=== PATIENT | male | born 1985 | race African-American/Black ===

== ENCOUNTER 2016-02-11 19:43 | Emergency (ER) | payer SELFPAY ==
[2016-02-11] MEDS ORDERED: OXYCODONE-ACETAMINOPHEN 5-325 MG TABLET PO ONE (19:50)
[2016-02-11] MEDS ORDERED: IBUPROFEN 800 MG TABLET PO ONE (19:50)
--- NOTE | 2016-02-11 19:50 | ER Document Report ---
ED Medical Screen (RME) - General Chief Complaint: Flank Pain Stated Complaint: FLANK PAIN Time seen by provider: 19:48 Mode of Arrival: Ambulatory Information source: Patient Notes: 30 yo male presents to ed for left flank pain since yesterday am when woke up. denies hx of kidney stone or [place]. TRAVEL OUTSIDE OF THE [place] IN LAST 30 DAYS: No - HPI Onset: Yesterday Onset/Duration: Gradual, Worse Quality of pain: Achy, Cramping, Sharp Severity: Severe Pain Level: 5 Associated Symptoms: Other - left flank pain Exacerbated by: Denies Relieved by: Denies Similar symptoms previously: No Recently seen / treated by doctor: No - Related Data Smoking: Non-smoker Frequency of alcohol use: Occasional Drug Abuse: None Allergies/Adverse Reactions: No Known Allergies Allergy (Verified 02/11/16 19:46) Past Medical History Past Surgical History: Reports: Hx Oral Surgery, Hx Orthopedic Surgery - R hip repair, L femur - Immunizations Immunizations up to date: Yes Hx Diphtheria, Pertussis, Tetanus Vaccination: No
[2016-02-11 20:32] LABS: ABSOLUTE BASOPHILS # (AUTO) 0.1 10^3/uL (0.0-0.2); ABSOLUTE EOSINOPHILS # (AUTO) 0.1 10^3/uL (0.0-0.6); ABSOLUTE LYMPHOCYTES (AUTO) 1.9 10^3/uL (0.5-4.7); ABSOLUTE MONOCYTES (AUTO) 0.6 10^3/uL (0.1-1.4); ABSOLUTE NEUT (AUTO) 4.1 10^3/uL (1.7-8.2); BASOPHILS % (AUTO) 0.9 % (0-2); EOSINOPHILS % (AUTO) 1.6 % (0-6); HEMATOCRIT 48.4 % (37.9-51.0); HGB HCT DIFFERENCE -0.4; LYMPHOCYTES % (AUTO) 28.3 % (13-45); MEAN CORPUSCULAR HEMOGLOBIN 28.2 pg (27.0-33.4); MEAN CORPUSCULAR VOLUME 86 fl (80-97); MONOCYTES % (AUTO) 8.5 % (3-13); RED BLOOD COUNT 5.66 10^6/uL (4.35-5.55); SEGMENTED NEUTROPHILS % (AUTO) 60.7 % (42-78); WHITE BLOOD COUNT 6.8 10^3/uL (4.0-10.5)
[2016-02-11 20:41] LABS: APPEARANCE,URINE SLIGHTLY-CLOUDY; BILIRUBIN,URINE NEGATIVE (NEGATIVE); GLUCOSE, URINE NEGATIVE (NEGATIVE); KETONES,URINE NEGATIVE (NEGATIVE); LEUKOCYTE ESTERASE,URINE TRACE (NEGATIVE); NITRITE,URINE NEGATIVE (NEGATIVE); PROTEIN,URINE NEGATIVE (NEGATIVE); URINE SPECIFIC GRAVITY 1.025
[2016-02-11 20:48] LABS: ALANINE AMINOTRANSFERASE 44 U/L (21-72); ALBUMIN 4.1 g/dL (3.5-5.0); ALKALINE PHOSPHATASE 61 U/L (38-126); ANION GAP 11 (5-19); ASPARTATE AMINO TRANSFERASE 36 U/L (17-59); BILIRUBIN,TOTAL 1.1 mg/dL (0.2-1.3); BLOOD UREA NITROGEN 11 mg/dL (7-20); CALCIUM 9.6 mg/dL (8.4-10.2); CARBON DIOXIDE 31 mmol/L (22-30); CHLORIDE 104 mmol/L (98-107); CREATININE RESULT 1.12 mg/dL (0.52-1.25); GLUCOSE 86 mg/dL (75-110); POTASSIUM 4.3 mmol/L (3.6-5.0); SODIUM 145.7 mmol/L (137-145); TOTAL PROTEIN 7.2 g/dL (6.3-8.2)
[2016-02-11] MEDS ORDERED: MORPHINE SULFATE 10 MG/ML INJ IM ONE (20:54)
[2016-02-11] MEDS ORDERED: DEXAMETHASONE SOD PHOS INJ 10 MG/1 ML VIAL IM ONE (20:54)
--- NOTE | 2016-02-11 21:23 | ER Document Report ---
ED General - General Chief Complaint: Flank Pain Stated Complaint: FLANK PAIN Mode of Arrival: Ambulatory Information source: Patient Notes: 30-year-old male presents with complaints of low back pain that started earlier this morning. Patient notes it hurts when he moves, denies any urinary complaints. Denies any fevers or chills nausea vomiting or diarrhea TRAVEL OUTSIDE OF THE [place] IN LAST 30 DAYS: No - HPI Onset: This morning Onset/Duration: Sudden Quality of pain: No pain Severity: Mild Pain Level: 3 Associated symptoms: Body/muscle aches Exacerbated by: Movement Relieved by: Denies Similar symptoms previously: Yes Recently seen / treated by doctor: No - Related Data Allergies/Adverse Reactions: No Known Allergies Allergy (Verified 02/11/16 19:46) Past Medical History - General Information source: Patient - Social History Smoking Status: Never Smoker Cigarette use (# per day): No Chew tobacco use (# tins/day): No Smoking Education Provided: No Frequency of alcohol use: Occasional Drug Abuse: None Family History: Reviewed & Not Pertinent Patient has suicidal ideation: No Patient has homicidal ideation: No Past Surgical History: Reports: Hx Oral Surgery, Hx Orthopedic Surgery - R hip repair, L femur - Immunizations Immunizations up to date: Yes Hx Diphtheria, Pertussis, Tetanus Vaccination: No Review of Systems - Review of Systems Notes: REVIEW OF SYSTEMS: CONSTITUTIONAL : Denies fever, chills, or sweats. Denies recent illness. EENT: Denies eye, ear, throat, or mouth pain or symptoms. Denies nasal or sinus congestion or discharge. Denies throat, tongue, or mouth swelling or difficulty swallowing. CARDIOVASCULAR: Denies chest pain. Denies palpitations or racing or irregular heart beat. Denies ankle edema. RESPIRATORY: Denies cough, cold, or chest congestion. Denies shortness of breath, difficulty breathing, or wheezing. GASTROINTESTINAL: Denies abdominal pain or distention. Denies nausea, vomiting , or diarrhea. Denies blood in vomitus, stools, or per rectum. Denies black, tarry stools. Denies constipation. GENITOURINARY: Denies difficulty urinating, painful urination, burning, frequency, blood in urine, or discharge. MUSCULOSKELETAL: Admits to left flank pain SKIN: Denies rash, lesions or sores. HEMATOLOGIC : Denies easy bruising or bleeding. LYMPHATIC: Denies swollen, enlarged glands. NEUROLOGICAL: Denies confusion or altered mental status. Denies passing out or loss of consciousness. Denies dizziness or lightheadedness. Denies headache. Denies weakness or paralysis or loss of use of either side. Denies problems with gait or speech. Denies sensory loss, numbness, or tingling. Denies seizures. PSYCHIATRIC: Denies anxiety or stress. Denies depression, suicidal ideation, or homicidal ideation. ALL OTHER SYSTEMS REVIEWED AND NEGATIVE. Dictation was performed using [employer] voice recognition software PHYSICAL EXAMINATION: GENERAL: Well-appearing, well-nourished and in mild distress HEAD: Atraumatic, normocephalic. EYES: Pupils equal round and reactive to light, extraocular movements intact, sclera anicteric, conjunctiva are normal. ENT: Nares patent, oropharynx clear without exudates. Moist mucous membranes. NECK: Normal range of motion, supple without lymphadenopathy LUNGS: Breath sounds clear to auscultation bilaterally and equal. No wheezes rales or rhonchi. HEART: Regular rate and rhythm without murmurs ABDOMEN: Soft, nontender, nondistended abdomen. No guarding, no rebound. No masses appreciated. Musculoskeletal: Normal range of motion, no pitting or edema. No cyanosis. Range of motion secondary to low back pain, no midline tenderness no step-off no deformities no neurological deficits tenderness on palpation of the left flank NEUROLOGICAL: Cranial nerves grossly intact. Normal speech, normal gait. Normal sensory, motor exams PSYCH: Normal mood, normal affect. SKIN: Warm, Dry, normal turgor, no rashes or lesions noted. Physical Exam - Vital signs Vitals: Temp Pulse Resp BP Pulse Ox 98.0 F 82 16 155/75 H 97 02/11/16 19:50 02/11/16 19:50 02/11/16 19:50 02/11/16 19:50 02/11/16 19:50 Course - Re-evaluation Re-evalutation: 02/11/16 21:23 Given patient's initial presentation patient was immediately sent for CT lab work which noted no acute abnormality, I believe the patient's complaints secondary to muscle strain. He will be given pain control and steroids and is otherwise stable for discharge After performing a Medical Screening Examination, I estimate there is LOW risk for EXPANDING OR RUPTURED ABDOMINAL AORTIC ANEURYSM, CAUDA EQUINA SYNDROME, EPIDURAL MASS LESION, or HERNIATED DISK CAUSING SEVERE SPINAL STENOSIS, thus I consider the discharge disposition reasonable. The patient and I have discussed the diagnosis and risks, and we agree with discharging home and close follow-up. We also discussed returning to the Emergency Department immediately if new or worsening symptoms occur with the understanding that symptoms and presentations can change. We have discussed the symptoms which are most concerning (e.g., saddle anesthesia, urinary or bowel incontinence or retention , changing or worsening pain) that necessitate immediate return. - Vital Signs Vital signs: Temp Pulse Resp BP Pulse Ox 98.0 F 82 16 155/75 H 97 02/11/16 19:50 02/11/16 19:50 02/11/16 19:50 02/11/16 19:50 02/11/16 19:50 - Laboratory Result Diagrams: 02/11/16 20:13 02/11/16 20:13 Laboratory results interpreted by me: 02/11/16 02/11/16 02/11/16 20:13 20:13 20:13 RBC 5.66 H RDW 15.0 H Sodium 145.7 H Carbon Dioxide 31 H Urine Urobilinogen 4.0 H Ur Leukocyte Esterase TRACE H - Diagnostic Test Radiology reviewed: Image reviewed, Reports reviewed - Report given to patient Discharge - Discharge Clinical Impression: Left flank pain, Muscle strain Condition: Stable Disposition: HOME, SELF-CARE Instructions: Low Back Pain ([facility]) Additional Instructions: Follow up with your physician tomorrow for further care or return to the ED IMMEDIATELY if symptoms worsen or new concerns occur Prescriptions: Hydrocodone/Acetaminophen [Lankin 5-325 mg Tablet] 1 tab PO Q6 #10 tablet Prednisone [Deltasone 20 mg Tablet] 3 tab PO DAILY 5 Days
[2016-02-11 21:42] VITALS: BP 160/67
== END 2016-02-11 21:35 | disposition home or self-care (01) ==
LOC: ER 19:43
DX: T14.8 Other injury of unspecified body region (principal); X58.XXXA Exposure to other specified factors, initial encounter; M54.5 Low back pain; R10.9 Unspecified abdominal pain
CPT/HCPCS: 99284; 96372; 36415; 85025; 80053; 81001; 76380; J2270; J1100

== ENCOUNTER 2016-11-24 12:52 | Emergency (ER) | payer SELFPAY ==
--- NOTE | 2016-11-24 13:55 | ER Document Report ---
HPI - HPI Patient complains to provider of: left hip and back pain Onset: Last week - sunday Quality of pain: Achy Pain Level: 5 Context: 31 yo male with spontaneous anterior upper thigh pain that radiates in left hip and back since riding a 4 escalera, started before riding No saddle anesthesia, fever, IV drug use or hx cancer. Associated Symptoms: None Exacerbated by: Walking Relieved by: Other - external rotation left knee and elongating lumbar spine with leg traction resolves the pain completely - ROS ROS below otherwise negative: Yes Systems Reviewed and Negative: Yes All other systems reviewed and negative - DERM Skin Color: Normal Past Medical History - General Information source: Patient - Social History Smoking Status: Never Smoker Frequency of alcohol use: None Drug Abuse: None Family History: Reviewed & Not Pertinent Patient has suicidal ideation: No Patient has homicidal ideation: No Renal/ Medical History: Denies: Hx Peritoneal Dialysis Past Surgical History: Reports: Hx Oral Surgery, Hx Orthopedic Surgery - R hip repair, L femur - Immunizations Immunizations up to date: Yes Hx Diphtheria, Pertussis, Tetanus Vaccination: No Vertical Provider Document - CONSTITUTIONAL Agree With Documented VS: Yes Exam Limitations: Clinical Condition General Appearance: Mild Distress - INFECTION CONTROL TRAVEL OUTSIDE OF THE [place] IN LAST 30 DAYS: No - HEENT HEENT: Normal ENT Exam, Normocephalic - NECK Neck: Supple - RESPIRATORY Respiratory: Breath Sounds Normal, No Respiratory Distress O2 Sat by Pulse Oximetry: 100 - CARDIOVASCULAR Cardiovascular: Regular Rate, Regular Rhythm - GI/ABDOMEN Gastrointestinal: Abdomen Soft, Abdomen Non-Tender - MUSCULOSKELETAL/EXTREMETIES Musculoskeletal/Extremeties: MAEW, FROM, Tender - Left SI joint Notes: tender left mid SI joint - NEURO Level of Consciousness: Awake, Alert, Appropriate Motor/Sensory: No Motor Deficit, No Sensory Deficit Deep Tendon Reflexes: 2+ - luis ankle and patellar Notes: negative straight leg lift, 5+ strength to gt toe dorsiflexion and foot eversion , - DERM Integumentary: Warm, Dry, No Rash Course - Re-evaluation Re-evalutation: 11/24/16 15:05 Patient changed his mind and decided that he wants an x-ray since they are going on a cruise tomorrow 11/24/16 16:[address] ulloa the radiologist and reviewed the films , he is unsure is the lucency adjacent to the SI joint is bowel gas or not, CT pelvis without contrast ordered. 11/24/16 17:[address] is negative - Vital Signs Vital signs: Temp Pulse Resp BP Pulse Ox 98.3 F 71 20 126/72 H 100 11/24/16 13:00 11/24/16 13:00 11/24/16 13:00 11/24/16 13:00 11/24/16 13:00 Discharge - Discharge Clinical Impression: left sacroillitis Low back pain Qualifiers: Chronicity: acute Back pain laterality: left Sciatica presence: with sciatica Sciatica laterality: sciatica of left side Qualified Code(s): M54.42 - Lumbago with sciatica, left side Sciatica Qualifiers: Laterality: left Qualified Code(s): M54.32 - Sciatica, left side Condition: Good Disposition: HOME, SELF-CARE Instructions: Acetaminophen, Anti-Inflammatory Medication ([facility]), Chiropractor, Low Back Pain ([facility]), Muscle Relaxers ([facility]), Stretching Exercises for the Back ( [facility]), Warm Packs ([facility]) Additional Instructions: warm compress low back stretches as indicated motrin muscle relaxers at night Please complete the patient satisfaction survey if you get one, and return it.. If you do not receive a survey, then you can go to the [facility] website, [email or web address] and place your comments about your very good care. Thank you very much. It was a pleasure being your medical provider today. Prescriptions: Ibuprofen [Motrin 800 mg Tablet] 800 mg PO Q8HP PRN #30 tablet PRN Reason: Cyclobenzaprine HCl [Flexeril 10 Mg Tablet] 10 mg PO TIDP PRN #20 tablet PRN Reason: Oxycodone HCl/Acetaminophen [Percocet 5-325 mg Tablet] 1 - 2 tab PO ASDIR PRN # 10 tablet PRN Reason: Referrals: AMY BUCHANAN MD [ACTIVE STAFF] - Follow up as needed
[2016-11-24] MEDS ORDERED: IBUPROFEN 800 MG TABLET PO ONE (14:15)
[2016-11-24] MEDS ORDERED: ACETAMINOPHEN 325 MG TABLET PO ONE (14:15)
[2016-11-24] MEDS ORDERED: CYCLOBENZAPRINE HCL 10 MG TABLET PO ONE (14:42)
--- NOTE | 2016-11-24 15:54 | RADIOLOGY REPORT (SQ) ---
EXAM DESCRIPTION: HIP LEFT AP/LATERAL COMPLETED DATE/TIME: 11/24/2016 3:30 pm REASON FOR STUDY: pain left SI joint area COMPARISON: Left hip films dated May [address] of the abdomen and pelvis dated February 2016 NUMBER OF VIEWS: Two views. TECHNIQUE: AP pelvis and additional frog-leg view of the left hip. LIMITATIONS: None. FINDINGS: MINERALIZATION: Normal. LEFT HIP: No fracture or dislocation. No worrisome bone lesions. An intramedullary leonel is identifie d extending distally from the proximal left femur. This was present on the previous plain films and appears stable. RIGHT HIP: No fracture or dislocation. No worrisome bone lesions. PUBIS AND ISCHIUM: No fracture. PELVIS: No fracture. SACRUM: A transition vertebra is identified at the lumbosacral junction. There appears to be a well corticated lucent area in the iliac crest adjacent to the left SI joint although this could be relate d to overlying bowel gas. This was not present on a previous CT of the abdomen and pelvis dated 2016. Pelvic CT scan may be of value for further evaluation if clinically warranted. LOWER LUMBAR SPINE: No fracture or dislocation. No worrisome bone lesions. No significant disc disea se. SOFT TISSUES: No findings. OTHER: No other significant finding. IMPRESSION: No acute fracture dislocation. Intramedullary leonel is identified in the proximal left fe mur. A transition vertebra is identified at the lumbar sacral junction. There appears to be a well corticated lucent area in the left iliac crest adjacent to the left SI joint as noted above although this could be related to overlying bowel gas. This was not present on a previous CT dated February 24. Pelvic CT scan may be of value for further evaluation if clinically warranted. Other findings a s noted above TECHNICAL DOCUMENTATION: JOB ID: [id number] [employer]- All Rights Reserved
--- NOTE | 2016-11-24 15:57 | RADIOLOGY REPORT (SQ) ---
EXAM DESCRIPTION: L SPINE WHOLE COMPLETED DATE/TIME: 11/24/2016 3:30 pm REASON FOR STUDY: pain left SI joint area COMPARISON: None. NUMBER OF VIEWS: Five views including obliques. TECHNIQUE: AP, lateral, oblique, and sacral radiographic images acquired of the lumbar spine. LIMITATIONS: None. FINDINGS: MINERALIZATION: Normal. SEGMENTATION: A transition vertebra is identified at the lumbosacral junction. ALIGNMENT: Normal. VERTEBRAE: Maintained height. No fracture or worrisome bone lesion. DISCS: Preserved height. No significant osteophytes or end plate irregularity. POSTERIOR ELEMENTS: Pedicles and facets are intact. No pars defect or posterior arch defects. HARDWARE: None in the spine. PARASPINAL SOFT TISSUES: Normal. PELVIS: There is limited visualization of the left iliac crest. OTHER: No other significant finding. 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 No significant vertebral compression o r disc space reduction. Other findings as noted above TECHNICAL DOCUMENTATION: JOB ID: [id number]- All Rights Reserved
--- NOTE | 2016-11-24 17:04 | RADIOLOGY REPORT (SQ) ---
EXAM DESCRIPTION: CT PELVIS WITHOUT COMPLETED DATE/TIME: 11/24/2016 4:51 pm REASON FOR STUDY: questionable plain films at SI joint COMPARISON: Radiograph from 11/24/[address] from 02/11/2016 TECHNIQUE: CT scan of the pelvis performed without intravenous or oral contrast. Images reviewed wi th soft tissue and bone windows. Reconstructed coronal and sagittal MPR images reviewed. All images stored on PACS. All CT scanners at this facility use dose modulation, iterative reconstruction, and/or weight based d osing when appropriate to reduce radiation dose to as low as reasonably achievable (ALARA). [facility]: Dose Right [facility]: CareDose [facility]: Dose Right [facility]: Teradose 4D [facility]: Smart [email or web address] RADIATION DOSE: Up-to-date CT equipment and radiation dose reduction techniques were employed. CTDIv ol: 43.1 mGy. DLP: 1213 mGy-cm. mGy. LIMITATIONS: None. FINDINGS: PELVIC BONES: No acute fracture. No worrisome bone lesions. VISUALIZED SPINE: Stable degenerative change in the setting of transitional anatomy. HIP(S): No acute fracture or dislocation. No worrisome bone lesions. PELVIC SOFT TISSUES: No significant findings. EXTRAPELVIC SOFT TISSUES: No significant findings. OTHER: No other significant finding. IMPRESSION: NO ACUTE OR SIGNIFICANT FINDINGS. FINDING ON PRIOR RADIOGRAPH PRESUMABLY ARTIFACTUAL. TECHNICAL DOCUMENTATION: JOB ID: [id number] Quality ID # [id number]: Final reports with documentation of one or more dose reduction techniques (e.g., Au tomated exposure control, adjustment of the mA and/or kV according to patient size, use of iterative reconstruction technique) 2010 [employer]- All Rights Reserved
[2016-11-24] MEDS ORDERED: OXYCODONE HCL IR 5 MG TABLET PO ONE (17:23)
[2016-11-24 17:54] VITALS: BP 124/70
== END 2016-11-24 17:45 | disposition home or self-care (01) ==
LOC: ER 12:52
DX: M46.1 Sacroiliitis, not elsewhere classified (principal); M54.42 Lumbago with sciatica, left side
CPT/HCPCS: 72110; 72192; 99284